=== PATIENT | female | born 1980 | race Asian ===

== ENCOUNTER 2018-09-26 18:07 | Emergency (ER) | payer SELFPAY ==
[~2018-09-26] VITALS: Ht 165.1 cm; Wt 60.3 kg
[2018-09-26 18:13] VITALS: BP 144/88
--- NOTE | 2018-09-26 18:15 | NUR ---
PT C/O CP PRESSURE PAIN x 4 DAYS, 03/24, RADIATES TO UPPER BACK, PT IS AAOX4, NOT IN RESPIRATORY DISTRESS, VS STABLE. KEPT RESTED AND COMFORTABLE.
--- NOTE | 2018-09-26 18:25 | NUR ---
SEEN AND EXAMINED BY PHILIP LAND.
--- NOTE | 2018-09-26 18:38 | NUR ---
RADIOLOGY AT BEDSIDE FOR XRAY.
[2018-09-26] MEDS ORDERED: ACETAMINOPHEN ES 500 MG TABLET ONE (19:05)
[2018-09-26] MEDS ORDERED: MAG HYDROX/AL HYDROX/SIMETH 30 ML UDC ONE (19:10)
[2018-09-26] MEDS ORDERED: LIDOCAINE VISCOUS 2% UD 15 ML UDC ONE (19:10)
--- NOTE | 2018-09-26 19:28 | NUR ---
REPORT GIVEN TO RASHARD LOYOLA FOR DES.
[2018-09-26] MEDS ORDERED: MAG HYDROX/AL HYDROX/SIMETH 30 ML UDC PO ONE (19:30)
[2018-09-26] MEDS ORDERED: ACETAMINOPHEN ES 500 MG TABLET PO ONE (19:30)
[2018-09-26] MEDS ORDERED: LIDOCAINE VISCOUS 2% UD 15 ML UDC MM ONE (19:30)
--- NOTE | 2018-09-26 19:39 | NUR ---
Patient discharged to home in stable condition. Written and verbal after care instructions given. Patient verbalizes understanding of instruction. PT AMBULATORY WITH STEADY GAIT.
== END 2018-09-26 19:41 | disposition home or self-care (01) ==
LOC: ER 18:07
DX: R07.89 Other chest pain (principal); K29.70 Gastritis, unspecified, without bleeding; I51.7 Cardiomegaly
CPT/HCPCS: 71045-TC